=== PATIENT | male | born 1995 | race Caucasian/White ===

== ENCOUNTER 2017-04-14 03:47 | Emergency (ER) | payer MEDICAID ==
[~2017-04-14] VITALS: Ht 188 cm; Wt 86.2 kg
[2017-04-14 08:47] VITALS: BP 110/71
[2017-04-14] MEDS ORDERED: IBUPROFEN 800 MG TAB PO ONE (09:00)
== END 2017-04-14 08:57 | disposition home or self-care (01) ==
LOC: EDBD 03:47 → ER 03:49
DX: S90.31XA Contusion of right foot, initial encounter (principal); W22.8XXA Striking against or struck by other objects, initial encounter; Y93.89 Activity, other specified; Y92.89 Other specified places as the place of occurrence of the external cause; Y99.8 Other external cause status
CPT/HCPCS: 73620

== ENCOUNTER 2017-05-12 11:43 | Emergency (ER) | payer MEDICAID ==
[~2017-05-12] VITALS: Ht 182.9 cm; Wt 79.4 kg
[2017-05-12 12:04] VITALS: BP 138/65
== END 2017-05-12 13:11 | disposition left against medical advice (07) ==
LOC: EDBD 11:43 → ER 11:43
DX: T59.891A Toxic effect of other specified gases, fumes and vapors, accidental (unintentional), initial encounter (principal); Y99.8 Other external cause status; Y93.89 Activity, other specified; Y92.89 Other specified places as the place of occurrence of the external cause